=== PATIENT | female | born 1990 | race Caucasian/White ===

== ENCOUNTER 2018-01-14 10:10 | Emergency (ER) | payer OTHER ==
--- OUTSIDE RECORDS SUMMARY | 2018-01-14 10:20 | XMS REPORT ---
:1990 Author Organization [facility] Address [address] [place] [address] Care Team Providers Name Role Phone Gavin Maki Unavailable Unavailable PROBLEMS Type Condition ICD9-CM Code [id number] Code Onset Condition SNOMED Code Dates Status Problem Polycystic E28.2 Active 12724917 ovarian syndrome Problem Other specified N92.5 Active 19835259 irregular menstruation Problem Unspecified R32 Active [id number] urinary incontinence Problem Secondary N91.1 Active 95512445 amenorrhea ALLERGIES No Information ENCOUNTERS Encounter Location Date Diagnosis [facility] [address] [facility] [address] [place], [place] [id number] [facility] December, OBGYN [place], [place] [id number] [facility] [address] Nov, Unspecified urinary [address] [place], incontinence R32 [place] [id number] [facility] [address] [facility] Oct, Unspecified urinary [address] [place], incontinence R32 [place] [id number] [place] [facility] Oct, Unspecified urinary OBGYN [facility], incontinence R32 [place] [id number] [place] [facility] Sep, Other specified irregular OBGYN [facility], menstruation N92.5 and [place] [id number] Polycystic ovarian syndrome E28.2 [place] [facility] Sep, Other specified irregular OBGYN [facility], menstruation N92.5 [place] [id number] [place] [facility] 10 Sep, 2017 OBG[place], [place] [id number] [facility] [address] [facility] Aug, Encounter for Road [address] [place], gynecological examination [place] [id number] (general) (routine) with abnormal findings Z01.411 ; Unspecified abnormal findings in urine R82.90 ; Other specified irregular menstruation N92.5 and Unspecified urinary incontinence R32 [place] [facility] May, Encounter for OBGYN [facility], sterilization Z30.2 and [place] [id number] Hematuria, unspecified R31.9 [facility] [facility] [address] [facility] May, PELVIC PAIN [address] [place], [place] [id number] [place] [facility] May, OBG[place] [id number] [place] [facility] May, OBGYN [place], [place] [id number] [facility] [address] [place], May, [facility] [place] [id number] [place] [facility] 103 May, Encounter for OBGYN [facility], contraceptive management, [place] [id number] unspecified Z30.9 [place] [facility] Apr, OBG[place] [id number] [place] [facility] 103 Feb, Secondary amenorrhea OBGYN [facility], N91.1 [place] [id number] [place] [facility] Feb, Secondary amenorrhea OBGYN [facility], N91.1 and Encounter for [place] [id number] test, result positive Z32.01 [place] [facility] Feb, [place]BG[place] [id number] [place] [facility] Feb, Secondary amenorrhea OBGYN [facility], N91.1 [place] [id number] [place] [facility] Feb, Encounter for OBGYN [facility], contraceptive management, [place] [id number] unspecified Z30.9 [facility] Jan, Encounter for OBGYN [facility], sterilization Z30.2 [place] [id number] [facility] December, Encounter for OBGYN [facility], contraceptive management, [place] [id number] unspecified Z30.9 [place] [facility] Nov, OBG[place] [id number] [place] [facility] Nov, POSTPART CARE AFTER DEL OBGYN [facility], V24.0 and FAMILY PLANNING [place] [id number] V25.09 [facility] Oct, [place]BG[place] [id number] [facility] Oct, [place] [id number] [place] [facility] 103 Oct, Encounter for OBGYN [facility], screening of mother Z36 [place] [id number] [facility] Sep, [place] [id number] [place] [facility] Sep, [place] [id number] [place] [facility] Sep, Encounter for OBGYN [facility], screening of mother Z36 [place] [id number] [facility] Aug, [place]BG[place] [id number] [place] [facility] Aug, Encounter for OBGYN [facility], screening of mother Z36 [place] [id number] [place] [facility] Aug, OBG[place], [place] [id number] [facility] Aug, OBGYN [facility], [place] [id number] [place] [facility] Jul, Encounter for OBGYN [facility], screening of mother Z36 [place] [id number] [place] [facility] Jul, Encounter for OBGYN [facility], screening of mother Z36 [place] [id number] [place] [facility] Jun, [place] [id number] [place] [facility] May, [place], [place] [id number] [place] [facility] May, [place]BG[place] [id number] [place] [facility] May, Encounter for suspected OBGYN [facility], anomaly ruled out [place] [id number] Z03.73 [place] [facility] Apr, [place] [id number] [place] [facility] Mar, OBGYN [place] [id number] [facility] 103 Mar, Encounter for OBGYN [facility], screening of mother Z36 [place] [id number] [place] [facility] Mar, [place] [id number] [place] [facility] Feb, OBG[place], [place] [id number] [facility] Feb, OBG[place] [id number] [facility] Feb, Secondary amenorrhea OBGYN [facility], N91.1 and Encounter for [place] [id number] test, result positive Z32.01 [facility] Feb, Secondary amenorrhea OBGYN [facility], N91.1 ; Encounter for [place] [id number] test, result positive Z32.01 ; Encounter for screening for malignant neoplasm of cervix Z12.4 and Encounter for screening for infections with a predominantly sexual mode of transmission Z11.3 [place] [facility] 11 Feb, 2016 [place] [id number] [place] [facility] 11 Feb, 2016 [place] [id number] [facility] Jul, [place] [id number] [place] [facility] Jul, [place] [id number] [place] [facility] Jul, [place] [id number] [place] [facility] 103 Jun, [place] [id number] [place] [facility] Jun, [place] [id number] [place] [facility] Jun, [place] [id number] [place] [facility] Jun, [place] [id number] [facility] May, [place] [id number] [place] [facility] May, [place] [id number] [place] [facility] May, [place] [id number] [place] [facility] May, Encounter for routine OBGYN [facility], follow-up [place] [id number] Z39.2 and Encounter for other general counseling and advice on contraception Z30.09 [place] [facility] Apr, [place] [id number] [place] [facility] Mar, [place], [place] [id number] [place] [facility] Mar, SCREENING NOS OBGYN [facility], V28.9 [place] [id number] [place] [facility] Mar, [place] [id number] [place] [facility] Mar, [place] [id number] [place] [facility] Feb, SCREENING NOS OBGYN [facility], V28.9 [place] [id number] [place] [facility] Feb, [place] [id number] [place] [facility] Feb, UTERINE SIZE BROCK- ANTEPAR OBGYN [facility], 649.63 [place] [id number] [place] [facility] Feb, [place]BG[place] [id number] [place] [facility] Feb, [place], [place] [id number] [place] [facility] Jan, [place], [place] [id number] [place] [facility] Jan, SCREENING NOS OBGYN [facility], V28.9 [place] [id number] [facility] December, [place], [place] [id number] [place] [facility] Nov, [place], [place] [id number] [place] [facility] Nov, US-SCREEN ANOMALIES V28.3 [place], [place] [id number] [facility] Oct, SCREENING NOS OBGYN [facility], V28.9 [place] [id number] [facility] [facility] Oct, [place] [id number] [facility] Sep, [place] [id number] [facility] Sep, SCREENING NOS OBGYN [facility], V28.9 [place] [id number] [facility] Sep, [place] [id number] [facility] Aug, SCREENING NOS OBGYN [facility], V28.9 [place] [id number] [facility] Aug, Amenorrhea 626.0 and OBGYN [facility], TEST-POSITIVE [place] [id number] V72.42 IMMUNIZATIONS No Known Immunizations SOCIAL HISTORY Never Assessed REASON FOR REFERRAL FUNCTIONAL STATUS PLAN OF CARE VITAL SIGNS MEDICATIONS Unknown Medications PROCEDURES No Known procedures RESULTS No Results REASON FOR VISIT upcoming appointments MEDICAL (GENERAL) HISTORY Type Description Date Medical History POTS (postural orthostatic tachycardia syndrome) Medical History syncope Medical History migraines Medical History anemia Surgical History lymph nodes--removed 2012 Surgical History BTO 05/31/17 Hospitalization History childbirth 2007 Hospitalization History childbirth 2014 Hospitalization History childbirth 2017
--- NOTE | 2018-01-14 10:58 | UC ---
Respiratory Complaint HPI - HPI Summary HPI Summary: Patient presents with an unremarkable past medical history. She presents today with complaints of chest congestion, productive cough, and at time will notice streaks of bright red blood. She states she has been experiencing chest discomfort only from the coughing. She denies any shortness of breath, sweating , nausea, associated with her symptoms. She states prior to these symptoms she believes she had the flu, then she got a little better, and then the above symptoms began to develop. - History of Current Complaint Stated Complaint: COUGH CONGESTION Time Seen by Provider: 01/14/18 10:40 Hx Obtained From: Patient Hx Last Menstrual Period: 07/14/14 Onset/Duration: Gradual Onset, Lasting Days Timing: Intermittent Episodes Severity Initially: Moderate Severity Currently: Moderate Character: Cough: Productive Aggravating Factors: Recumbent Position Alleviating Factors: Upright Position, Spontaneous Resolution Associated Signs And Symptoms: Positive: URI, Nasal Congestion - Risk Factors Pulmonary Embolism Risk Factors: Negative Pseudomonas Risk Factors: Negative Tuberculosis Risk Factors: Negative - Allergies/Home Medications Allergies/Adverse Reactions: Allergies Allergy/AdvReac Type Severity Reaction Status Date / Time MS Latex [Latex] Allergy Severe Hives Verified 01/14/18 10:54 MS Penicillins [Penicillins] Allergy Severe Hives Verified 01/14/18 10:54 MS Acetaminophen Allergy Mild dermititis Verified 01/14/18 10:54 [From Tylenol] MS Aspirin [Aspirin] Allergy Mild dermititis Verified 01/14/18 10:54 MS Ibuprofen [Ibuprofen] Allergy Hives Verified 01/14/18 10:54 Home Medications: Home Medications metFORMIN* [Glucophage 500 MG TAB *] 1 tab PO DAILY 01/14/18 [History Confirmed 01/14/18] PMH/Surg Hx/FS Hx/Imm Hx Previously Healthy: Yes - Surgical History Surgical History: Yes Surgery Procedure, Year, and Place: lymph nodes R side of head removed. Mole Removal from Breast - Family History Known Family History: Positive: Cardiac Disease, Hypertension, Diabetes - Social History Occupation: Unemployed Lives: Alone Alcohol Use: None Substance Use Type: None Smoking Status (MU): Former Smoker Amount Used/How Often: 2 cigarettes daily Length of Time of Smoking/Using Tobacco: 11 years Have You Smoked in the Last Year: Yes When Did the Patient Quit Smoking/Using Tobacco: Jun 2014 Review of Systems Constitutional: Negative Skin: Negative Eyes: Negative ENT: Negative Respiratory: Cough Cardiovascular: Negative Gastrointestinal: Negative Genitourinary: Negative Motor: Negative Neurovascular: Negative Musculoskeletal: Negative Neurological: Negative Psychological: Negative Is Patient Immunocompromised?: No All Other Systems Reviewed And Are Negative: Yes Physical Exam Triage Information Reviewed: Yes Appearance: Ill-Appearing Vital Signs Reviewed: Yes Eye Exam: Normal ENT Exam: Normal Neck exam: Normal Neck: Positive: 1 Respiratory: Positive: No respiratory distress, No accessory muscle use, Rhonchi Cardiovascular Exam: Normal Abdominal Exam: Normal Musculoskeletal Exam: Normal Neurological Exam: Normal Psychological Exam: Normal Skin Exam: Normal Respiratory Course/Dx - Course Course Of Treatment: Patient was treated with tessalon pearles, and zpk. Told to follow up if symtpoms persist. - Differential Dx/Diagnosis Differential Diagnosis/HQI/PQRI: Bronchitis Provider Diagnoses: bronchitis Discharge - Sign-Out/Discharge Documenting (check all that apply): Discharge/Admit/Transfer - Discharge Plan Condition: Stable Disposition: HOME Prescriptions: Azithromycin TAB* [Zithromax TAB (Z-JARETH) 250 mg #6 tabs] 250 mg PO DAILY #6 tab Benzonatate CAP* [Tessalon 100 MG CAP*] 100 mg PO TID #14 cap Patient Education Materials: Acute Bronchitis (ED) Referrals: Yohana Klein MD [Primary Care Provider] - - Billing Disposition and Condition Condition: STABLE Disposition: HOME
[2018-01-14 11:03] VITALS: BP 108/67
== END 2018-01-14 11:08 | disposition home or self-care (01) ==
LOC: UCEAST 10:10
DX: J40 Bronchitis, not specified as acute or chronic (principal); Z88.0 Allergy status to penicillin; Z88.6 Allergy status to analgesic agent; Z91.040 Latex allergy status; Z87.891 Personal history of nicotine dependence
CPT/HCPCS: 99212; G0463

== ENCOUNTER 2019-07-09 09:33 | Emergency (ER) | payer OTHER ==
--- NOTE | 2019-07-09 10:00 | UC ---
Headache HPI - HPI Summary HPI Summary: 28 yo woman presents for 5 days of persistent headache, different from her typical migraine which is usually left sided and periorbital. Onset of neck pain and occipital to frontal bilateral headache about 5 days ago, with increase in floaters, but no scotoma or visual field loss. She has used excedrin without relief, and took sumatriptan 50mg x 2 3 days ago without relief. (No systemic reaction to nsaid's--she gets a rash on her legs with overuse.) Persistent nausea but no vomiting. No balance loss, vertigo. Sometimes has perioral and bilateral hand paresthesias prior to onset of headache. - History Of Current Complaint Chief Complaint: UCHeadache Stated Complaint: HEADACHE Time Seen by Provider: 07/09/19 09:49 Hx Obtained From: Patient Hx Last Menstrual Period: 07/06/19 ?: No Onset/Duration: Sudden Onset, Lasting Days - 5 Onset Of Symptoms: Sudden Initially Headache Was: Moderate Currently Pain Is: Moderate Pain Intensity: 6 Timing: Constant Character: Throbbing Location of Headache: Frontal, Occipital Aggravating Factor(s): Exertion Allevating Factor(s): Rest Associated Signs And Symptoms: Positive: Nausea, Neck Pain, Visual Changes - increased floaters. Negative: Vomiting, Neck Stiffness - Allergies/Home Medications Allergies/Adverse Reactions: Allergies Allergy/AdvReac Type Severity Reaction Status Date / Time latex Allergy Severe Hives Verified 07/09/19 09:45 Penicillins Allergy Severe Hives Verified 07/09/19 09:45 acetaminophen [From Tylenol] Allergy Mild Rash Verified 07/09/19 09:45 aspirin Allergy Mild Rash Verified 07/09/19 09:45 ibuprofen Allergy Hives Verified 07/09/19 09:45 Home Medications: Home Medications Aspirin/Acetaminophen/Caffeine [Excedrin Migraine Caplet] 2 tab PO ONCE PRN [History Confirmed 07/09/19] SUMAtriptan [Sumatriptan] 50 mg PO DAILY 07/09/19 [History Confirmed 07/09/19] PMH/Surg Hx/FS Hx/Imm Hx - Additional Past Medical History Additional PMH: States history of unexplained blackouts - Surgical History Surgical History: Yes Surgery Procedure, Year, and Place: lymph nodes R side of head removed. Mole Removal from Breast. tubal ligation - Family History Known Family History: Positive: Cardiac Disease, Hypertension, Diabetes - Social History Alcohol Use: None Substance Use Type: None Smoking Status (MU): Current Some Day Smoker Amount Used/How Often: 2 cigarettes daily Length of Time of Smoking/Using Tobacco: 11 years Have You Smoked in the Last Year: Yes When Did the Patient Quit Smoking/Using Tobacco: Jun 2014 Household Exposure Type: Cigarettes Review of Systems All Other Systems Reviewed And Are Negative: Yes Constitutional: Positive: Fatigue - has not felt well for many months, with evaluation by Dr. James., Other - states has had 98 pounds weight loss this year without effort. Skin: Positive: Other - reaction to nsaid's is a brown discoloration in her legs if she uses them too frequently. No hx of urticaria or breathing distress with use. Eyes: Negative: Blurred Vision, Photophobia ENT: Positive: Negative Respiratory: Positive: Negative Cardiovascular: Positive: Other - has had evaluations of blackouts, which she states occur weekly. Chronically feels lightheaded with standing. Gastrointestinal: Positive: Diarrhea - states has diarrhea daily. Genitourinary: Positive: Negative Motor: Positive: Negative Neurovascular: Positive: Negative Musculoskeletal: Positive: Negative Neurological: Positive: Headache Psychological: Positive: Other - tearful, depressed mood and affect. Denies depressed mood, stating it is due to pain, but spouse says that home is stressful with 2 very active young children at home. Is Patient Immunocompromised?: No Physical Exam Triage Information Reviewed: Yes Appearance: Pain Distress - mild, Obese Vital Signs: Initial Vital Signs Temp 98.5 F 07/09/19 09:38 Pulse 77 07/09/19 09:38 Resp 18 07/09/19 09:38 BP 140/59 07/09/19 09:38 Pulse Ox 99 07/09/19 09:38 Eye Exam: Other - LINDA, no photophobia Eyes: Positive: Conjunctiva Clear ENT: Positive: Pharynx normal Neck: Positive: Supple, No Lymphadenopathy, Tenderness @ - bilateral paraspinals Respiratory: Positive: Lungs clear, Normal breath sounds Cardiovascular: Positive: RRR, No Murmur Abdomen Description: Positive: Nontender, No Organomegaly, Soft Musculoskeletal Exam: Other - tenderness right occipital area Musculoskeletal: Positive: Strength Intact, ROM Limited @ - cervical spine, with pain with extension and lateral bending to the right. Neurological Exam: Other - CNII-XII normal, no pronator drift, normal gait. Neurological: Positive: Alert, Muscle Tone Normal Psychological Exam: Other - tearful, depressed mood and affect. Re-Evaluation - Re-Evaluation First Eval Re-Evaluation Time: 11:15 Change: Unchanged Comment: Headache not abating with toradol or flexeril. She has continued to hold her head bent to the left, with continued source of headache in the right occipital insertion of the traps. Headache Course/Dx - Course Course Of Treatment: hydrocodone to break pain cycle. Discussed muscle contraction headache, and referral given for PT Discussed need to correct posture to a neutral position. - Differential Dx/Diagnosis Differential Diagnosis/HQI/PQRI: Migraine, Tension Headache Provider Diagnosis: Muscle contraction headache Discharge ED - Sign-Out/Discharge Documenting (check all that apply): Patient Departure All imaging exams completed and their final reports reviewed: No Studies - Discharge Plan Condition: Stable Disposition: HOME Patient Education Materials: Tension Headache (ED) Referrals: Yohana Klein MD [Primary Care Provider] - [facility] [Outside] Additional Instructions: The origin of your headache is due to strain in the muscle attachment at the base of the skull. You have been given toradol and a muscle relaxant without relief. Once you take the hydrocodone, rest at home. Ensure that your neck is supported in a neutral position. Apply warm moist heat to the neck for 10 minutes 3 or 4 times per day. You have a referral for physical therapy which can be very helpful in correcting this type of headache. Ensure that you establish care with a new primary doctor. - Billing Disposition and Condition Condition: STABLE Disposition: Home
[2019-07-09] MEDS ORDERED: Ketorolac *IM* INJ* 60 MG/2 ML VIAL IM ONE (10:09)
[2019-07-09] MEDS ORDERED: Ondansetron ODT TAB* 4 MG PO ONE (10:09)
[2019-07-09] MEDS ORDERED: Cyclobenzaprine TAB* 10 MG PO ONE (10:40)
[2019-07-09] MEDS ORDERED: HYDROcodone/ACETAMIN 5-325 MG* 1 TAB PO ONE (11:31)
[2019-07-09 11:49] VITALS: BP 116/66
== END 2019-07-09 11:50 | disposition home or self-care (01) ==
LOC: UCEAST 09:33
DX: R51 Headache (principal); E66.9 Obesity, unspecified; R19.7 Diarrhea, unspecified; F17.210 Nicotine dependence, cigarettes, uncomplicated; Z91.040 Latex allergy status; Z88.0 Allergy status to penicillin; Z88.6 Allergy status to analgesic agent
CPT/HCPCS: 96372; 99212; A9270-GY; G0463; J1885